=== PATIENT | male | born 1980 | race Asian ===

== ENCOUNTER 2024-12-16 00:14 | Emergency (ER) | payer MEDICAID, SELFPAY ==
[2024-12-16 00:16] VITALS: BMI 25.7
[2024-12-16 00:20] VITALS: BP 122/82; PULSE 74; RESP 18; TEMP 36.3; O2SAT 97
[2024-12-16 05:11] VITALS: BP 132/74; PULSE 72; RESP 18; TEMP 36.4; O2SAT 96
--- NOTE | 2024-12-16 05:18 | PD.EDSKIN ---
ED Skin Abcess FB-RME/HPI General Chief complaint: Skin/Abscess/Foreign Body Stated complaint: HIVES Time Seen by Provider: 12/16/24 02:39 Arrival date/time: 12/16/24 00:14 RME / HPI RME / HPI narrative: Hives intermittently since Sunday after possible exposure to shellfish. Denies history of anaphylactic reaction. Denies shortness of breath, tongue swelling, lip swelling. Related Data Allergies Allergy/AdvReac Type Severity Reaction Status Date / Time SHELLFISH Allergy Uncoded 12/16/24 00:15 Course Orders Category Date Time Status Dexamethasone Inj [Decadron Inj] Med 12/16/24 05:15 Once 10 mg IM X1 ONE DiphenhydrAMINE [Benadryl] Med 12/16/24 05:15 Once 50 mg PO X1 ONE Famotidine [Pepcid] Med 12/16/24 05:15 Once 40 mg PO X1 ONE Vital Signs Vital signs: Vital Signs Temperature 97.4 F 12/16/24 00:20 Pulse Rate 74 12/16/24 00:20 Respiratory Rate 18 12/16/24 00:20 Blood Pressure 122/82 12/16/24 00:20 Pulse Oximetry (%) 97 12/16/24 00:20 Oxygen Delivery Method Room Air 12/16/24 00:20 Skin / Abscess / Foreign Body Medications / Prescriptions Medication administrations:: Medication Administration History Dexamethasone Sodium Phosphate (Dexamethasone Sod Phos Inj 10 Mg/Ml Vial) 10 mg IM X1 ONE Stop: 12/16/24 05:16 Diphenhydramine HCl (Diphenhydramine 25 Mg Capsule) 50 mg PO X1 ONE Stop: 12/16/24 05:16 Famotidine (Famotidine 20 Mg Tablet) 40 mg PO X1 ONE Stop: 12/16/24 05:16 Discharge Plan Prescriptions/Referrals Referrals: Patel Velasco MD [Primary Care Provider] - In 1 week Patient/Caregiver Discharge Instructions Print Language: [place]
[2024-12-16] MEDS: FAMOTIDINE 20 MG TABLET 40 MG PO (05:32)
[2024-12-16] MEDS: DiphenhydrAMINE 25 MG CAPSULE 50 MG PO (05:32)
[2024-12-16] MEDS: DEXAMETHASONE SOD PHOS INJ 10 MG/ML VIAL IM (05:32)
== END 2024-12-16 05:37 | disposition home or self-care (01) ==
PROVIDERS: Emergency Provider Emergency Medicine; PCP Family Medicine
DX: L50.9 Urticaria, unspecified (principal)
CPT/HCPCS: 96372; 99283; J1100; A9270